=== PATIENT | female | born 1940 | race Caucasian/White ===

== ENCOUNTER 2016-11-06 13:29 | Emergency (ER) | payer MEDICARE ==
[2016-11-06 13:38] VITALS: TEMP 98.3
[2016-11-06 14:31] LABS: BASO # 0.1 K/uL (0.0-0.2); BASO % 0.8 % (0.0-2.0); EOS # 0.1 K/uL (0.0-0.7); EOS % 1.5 % (0.0-4.0); HEMATOCRIT 36.6 % (34.0-47.0); LYMPH # 1.7 K/uL (1.0-4.3); LYMPH % 24.3 % (20.0-40.0); MEAN CELL VOLUME 85.5 fL (81.0-99.0); MEAN CORPUSCULAR HEMOGLOBIN 28.2 pg (27.0-31.0); MEAN PLATELET VOLUME 8.6 fL (7.2-11.7); MONO # 0.6 K/uL (0.0-0.8); MONO % 8.1 % (0.0-10.0); RED CELL DISTRIBUTION WIDTH 14.5 % (11.5-14.5); WHITE BLOOD COUNT 6.9 K/uL (4.8-10.8)
[2016-11-06 14:44] LABS: CHLORIDE 100 mmol/L (98-107)
[2016-11-06 14:45] LABS: POTASSIUM 3.9 mmol/L (3.6-5.2); SODIUM 139 mmol/L (132-148)
[2016-11-06 14:47] LABS: CARBON DIOXIDE 29 mmol/L (22-30); CHOLESTEROL 181 mg/dL (0-199); GFR AFRICAN-AMERICAN > 60
--- NOTE | 2016-11-06 14:47 | CT ---
PROCEDURE: CT HEAD WITHOUT CONTRAST. HISTORY: occipital headache x 3 days COMPARISON: None available. TECHNIQUE: Axial computed tomography images were obtained through the head/brain without intravenous contrast. Radiation dose: Total exam DLP = 768.10 mGy-cm. This CT exam was performed using one or more of the following dose reduction techniques: Automated exposure control, adjustment of the mA and/or kV according to patient size, and/or use of iterative reconstruction technique. FINDINGS: Streak artifact obscures evaluation of the skullbase. HEMORRHAGE: No intracranial hemorrhage. BRAIN: Diffuse atrophy with prominence of the ventricles and sulci noted. No mass effect or edema. Intracranial atherosclerotic calcifications. Mild scattered white matter hypodensities, which are nonspecific, but often seen with chronic microvascular ischemic disease. Please note that MRI with diffusion imaging is more sensitive in the detection of acute ischemic event. VENTRICLES: No hydrocephalus. CALVARIUM: Unremarkable. PARANASAL SINUSES: Increased attenuation of the partially imaged right maxillary sinus contents may indicate proteinaceous material or fungal colonization. Included portions of the right maxillary sinus demonstrates sclerosis and hypertrophy indicating chronic condition. The remainder of the limited visualized paranasal sinuses appear clear. MASTOID AIR CELLS: Unremarkable as visualized. No inflammatory changes. OTHER FINDINGS: None. IMPRESSION: No acute intracranial pathology identified. Increased attenuation of the partially imaged right maxillary sinus contents may indicate proteinaceous material or fungal colonization. Included portions of the right maxillary sinus demonstrates sclerosis and hypertrophy indicating chronic condition. Additional findings as above.
[2016-11-06 14:48] LABS: ALB/GLOB RATIO 1.1 (1.0-2.1); ALKALINE PHOSPHATASE 78 U/L (38-126); ALT/SGPT 20 U/L (9-52); AST/SGOT 27 U/L (14-36); BILIRUBIN,TOTAL 0.8 mg/dL (0.2-1.3); BLOOD UREA NITROGEN 19 mg/dL (7-17); CALCIUM 8.9 mg/dl (8.6-10.4); GLUCOSE,RANDOM 98 mg/dL (65-105); RBC URINE 1 /hpf (0-3); URINE BACTERIA RARE (<OCC); URINE BILIRUBIN NEGATIVE (NEGATIVE); URINE BLOOD 1+ (NEGATIVE); URINE COLOR Straw (YELLOW); URINE GLUCOSE (UA) NORMAL (Normal); URINE KETONE NEGATIVE (NEGATIVE); URINE LEUKOCYTE ESTERASE 1+ Leu/uL (Negative); URINE PROTEIN NEGATIVE (NEGATIVE); URINE UROBILINOGEN NORMAL mg/dL (0.2-1.0); WBC URINE 2 /hpf (0-5)
[2016-11-06 15:50] VITALS: BP 135/77; PULSE 77; RESP 16; O2SAT 100
--- NOTE | 2016-11-06 16:20 | C.PDOC ---
History Of Present Illness 76 y/o female, PMHx of right maxillary sinus surgery, presents to ED with complaint of right occipital tenderness, associated with a burning sensation, for the last week. Denies trauma, fall, or rash. Patient states pain is digitally reproducible. Otherwise, patient denies history of herpes zoster. Patient notes she has been alternating heat and ice without improvement of pain. Time Seen by Provider: 11/06/16 13:50 Chief Complaint (Nursing): Headache History Per: Patient History/Exam Limitations: no limitations Onset/Duration Of Symptoms: Days Current Symptoms Are (Timing): Still Present Quality: Burning, "Pain" Associated Symptoms: denies: Photophobia, Blurred Vision, Nausea, Vomiting, Extremity Weakness Recent travel outside of the [place]: No Past Medical History Reviewed: Historical Data, Nursing Documentation, Vital Signs Vital Signs: Last Vital Signs Temp 98.3 F 11/06/16 13:34 Pulse 77 11/06/16 15:48 Resp 16 11/06/16 15:48 BP 135/77 11/06/16 15:48 Pulse Ox 100 11/06/16 16:34 - Medical History PMH: HTN, Hypercholesterolemia Surgical History: Cholecystectomy Other Surgeries: right maxillary sinus surgery - [facility] Procedures INJECT/INFUSE NEC (10/03/06) Family History: States: Unknown Family Hx - Social History Hx Alcohol Use: No Hx Substance Use: No - Immunization History Hx Tetanus Toxoid Vaccination: No Hx Influenza Vaccination: No Hx Pneumococcal Vaccination: No Review Of Systems Except As Marked, All Systems Reviewed And Found Negative. Constitutional: Negative for: Fever, Chills Eyes: Negative for: Vision Change Respiratory: Negative for: Cough Gastrointestinal: Negative for: Nausea, Vomiting Skin: Negative for: Rash Neurological: Positive for: Headache. Negative for: Weakness, Numbness, Dizziness Physical Exam - Physical Exam Appears: Non-toxic, No Acute Distress Skin: Normal Color, Warm, Dry Head: Atraumatic, Normacephalic, Tenderness (occipital insertion, right side), No Swelling Eye(s): bilateral: Normal Inspection, PERRL, EOMI Ear(s): Bilateral: Normal Nose: Normal Neck: No Midline Cervical Tenderness, No Paracervical Tenderness, Supple Chest: Symmetrical Cardiovascular: Rhythm Regular Respiratory: Normal Breath Sounds, No Rales, No Rhonchi, No Wheezing Back: Normal Inspection Extremity: Normal ROM, Capillary Refill (< 2 sec. ) Neurological/Psych: Oriented x3, Normal Speech, Normal Cognition, Normal Cranial Nerves, Normal Motor, Normal Sensation, Other (no focal deficits) ED Course And Treatment - Laboratory Results Result Diagrams: 11/06/16 14:27 11/06/16 14:27 Lab Interpretation: Normal (ua neg.) ECG: Interpreted By Me ECG Rhythm: Sinus Rhythm ECG Interpretation: Normal Rate From EC O2 Sat by Pulse Oximetry: 100 (room air) Pulse Ox Interpretation: Normal - Radiology CXR: Interpreted by Me CXR Interpretation: Yes: No Acute Disease - CT Scan/US CT Head Other Rad Studies (CT/US): Read By Radiologist, Radiology Report Reviewed CT/US Interpretation: IMPRESSION: No acute intracranial pathology identified. Increased attenuation of the partially imaged right maxillary sinus contents may indicate proteinaceous material or fungal colonization. Included portions of the right maxillary sinus demonstrates sclerosis and hypertrophy indicating chronic condition. CT Sinuses Other Rad Studies (CT/US): Read By Radiologist, Radiology Report Reviewed CT/US Interpretation: IMPRESSION: Deformity an thickening in the right maxillary sinus bone. Complete opacification of the right maxillary sinus extending to the nasal cavity and associated with foci of high attenuation. Findings may represent chronic infection including chronic fungal infection versus large polyp. Progress Note: motrin 600 po and ice pack to R occiput wtih much improvement Reevaluation Time: 16:19 Reassessment Condition: Improved Medical Decision Making Medical Decision Making: burning tender pain @ scalp highly suspicious for herpes zoster, though no rash , nor dermatomal pain/rash noted on the scalp/face. pt's pain is localized, digitally reproducable and non spreading without skin lesions Sinus issues MAY cause unilateral headache pain which was further elucidated today with head and Sinus CT but her sinus conditions of R maxillary are post- surgical from "years" ago and chronic- LOW suspicion of involvement in today's R occipital scalp pain today. Refer to Dr. Barajas for futher eval PRN Disposition Doctor Will See Patient In The: Office Counseled Patient/Family Regarding: Studies Performed, Diagnosis - Disposition Referrals: Sánchez Barajas MD [Staff Provider] - George Hutchison DO [Doctor Osteopathy] - Disposition: HOME/ ROUTINE Disposition Time: 16:22 Condition: GOOD Additional Instructions: continue ice packs to the occiptal scalp (the back of your head) 1/2 hour per hour, nothing hot! Motrin 400-600 mg every 6 hours or Naproxyn 250-500 mg every 12 hours Pepcid 20 mg @ night to prevent stomach irritation from the Motrin/Naproxyn Follow-up with Dr. Hutchison or Dr. Barajas (ENT Specialist) at your convenience- call to make an appointment. Instructions: Acute Headache (ED) - Clinical Impression Clinical Impression: Scalp pain - Scribe Statement The provider has reviewed the documentation as recorded by the Jay Holland Provider Scribe Attestation: All medical record entries made by the Jay were at my direction and personally dictated by me. I have reviewed the chart and agree that the record accurately reflects my personal performance of the history, physical exam, medical decision making, and the department course for this patient. I have also personally directed, reviewed, and agree with the discharge instructions and disposition.
--- NOTE | 2016-11-06 16:24 | RAD ---
HISTORY: ADEN COMPARISON: None available TECHNIQUE: Chest, one view. FINDINGS: Examination limited by habitus, hypo inflation, and patient obliquity. LUNGS: L hilar prominence likely exaggerated by patient obliquity and hypoinflation. Left basilar atelectasis. Please note that chest x-ray has limited sensitivity for the detection of pulmonary masses. PLEURA: No significant pleural effusion identified. No definite pneumothorax . CARDIOVASCULAR: Borderline cardiomegaly, likely exaggerated by hypoinflation. OSSEOUS STRUCTURES: Degenerative changes of the spine. Acromioclavicular arthropathy. VISUALIZED UPPER ABDOMEN: Unremarkable. OTHER FINDINGS: None. IMPRESSION: Left basilar atelectasis. Additional findings as above
--- NOTE | 2016-11-06 16:34 | CT ---
PROCEDURE: CT SINUSES WITHOUT CONTRAST HISTORY: R maxillary mass/fungal seen on head CT COMPARISON: None TECHNIQUE: Contiguous axial CT images of the paranasal sinuses were obtained. Coronal and sagittal reformats were generated. Radiation dose: Total exam DLP = 6208.76 mGy-cm. This CT exam was performed using one or more of the following dose reduction techniques: Automated exposure control, adjustment of the mA and/or kV according to patient size, and/or use of iterative reconstruction technique. FINDINGS: FRONTAL SINUSES: Clear. ETHMOID SINUSES: Partial opacification of the right ethmoid sinuses. SPHENOID SINUSES: Clear. MAXILLARY SINUSES: There is complete opacification of the right maxillary sinus associated with foci of calcification or high density material and associated with thickening and deformity of the right maxillary sinus bone. The right maxillary sinus opacity extending to the nasal cavity. Findings may represent large polyp versus chronic infections including chronic fungal infection. SINUS DRAINAGE: Obstruction of the right ostiomeatal complex. NASAL SEPTUM: No significant deviation. No destructive lesion. MASS: None. SKULL BASE: Unremarkable. TEMPORAL BONES: Middle ears and mastoid grossly unremarkable. OTHER FINDINGS: None. IMPRESSION: Deformity an thickening in the right maxillary sinus bone. Complete opacification of the right maxillary sinus extending to the nasal cavity and associated with foci of high attenuation. Findings may represent chronic infection including chronic fungal infection versus large polyp. The rest of the sinuses are clear.
--- NOTE | 2016-11-07 17:09 | CARD ---
APPROVED REPORT EKG Measurement Heart [id number] <Conclusion> Normal sinus rhythm Minimal voltage criteria for LVH, may be normal variant Borderline ECG
== END 2016-11-06 16:35 | disposition home or self-care (01) ==
LOC: C.ER 13:29
DX: R51 Headache (principal)